=== PATIENT | female | born 1960 | race Two or more races ===

== ENCOUNTER 2025-07-20 10:58 | Outpatient (CLI) | payer OTHER, MEDICAID ==
[2025-07-20 12:47] LABS: Alanine Aminotransferase 15 U/L (7-40); Albumin 4.1 g/dL (3.2-4.8); Alkaline Phosphatase 83 U/L (46-116); Anion Gap 8 (5-15); BUN/Creatinine Ratio 16.5 (10.0-20.0); Blood Urea Nitrogen 14 mg/dL (9-23); Calcium 9.3 mg/dL (8.7-10.4); Carbon Dioxide 29 mmol/L (20-31); Chloride 106 mmol/L (98-107); Potassium 4.4 mmol/L (3.5-5.1); Sodium 143 mmol/L (136-145); Total Protein 7.3 g/dL (5.7-8.2); Triglycerides 51 mg/dL (< 150)
[2025-07-20 12:48] LABS: Cholesterol 208 mg/dL (< 200); Glucose 114 mg/dL (74-106)
[2025-07-20 12:49] LABS: Bilirubin, Total 0.8 mg/dL (0.2-1.0); HDL Cholesterol 65 mg/dL (40-59)
[2025-07-20 12:50] LABS: Microalb/Creat Ratio, Urine 20.0
== END 2025-07-20 17:00 | disposition home or self-care (01) ==
LOC: LAB 10:58
DX: E78.5 Hyperlipidemia, unspecified (principal)
CPT/HCPCS: 36415; 80053; 80061; 82043; 82570; 83036